=== PATIENT | male | born 1950 | race Caucasian/White ===

== ENCOUNTER 2017-06-12 17:46 | Emergency (ER) | payer MEDICARE, OTHER | END 2017-06-12 20:04 | disposition home or self-care (01) | LOC: D.ER 17:46 | DX: S01.01XA Laceration without foreign body of scalp, initial encounter (principal); W19.XXXA Unspecified fall, initial encounter; Y93.89 Activity, other specified; Y92.89 Other specified places as the place of occurrence of the external cause; E11.9 Type 2 diabetes mellitus without complications; I10 Essential (primary) hypertension ==

== ENCOUNTER 2017-10-12 01:36 | Inpatient (IN) | payer MEDICARE, OTHER ==
[~2017-10-12] VITALS: Ht 180.3 cm; Wt 122.0 kg
[2017-10-12] VITALS (16 sets, daily range): BP systolic 118–140; BP diastolic 64–102; BMI 40.3
--- NOTE | ~2017-10-12 | PN ---
PATIENT:NORMAN PHELPS JR MEDICAL RECORD: [id number] LOCATION:D.[facility] D.230 ADMISSION DATE: 10/12/17 PROGRESS NOTE DATE OF SERVICE: 10/28/2017 SUBJECTIVE: A 66-year-old male who was admitted through the Emergency Room for confusion, respiratory distress, and acute respiratory failure with hypoxia. The patient was felt to have alcohol withdrawal syndrome. He was also noted to have acute renal injury and nephrology was consulted. The patient was treated for alcohol withdrawal syndrome and his mental status has been improving. He does have occasional confusion. There is no fever and no chills. PHYSICAL EXAMINATION: VITAL SIGNS: Temperature 97.9, heart rate of 153, respiratory rate of 16, blood pressure 105/84, saturation 97%. SHEENT: Unremarkable. NECK: Supple. CARDIAC: Shows no jugular venous distention, murmur, or gallop. ABDOMEN: Benign without any tenderness. EXTREMITIES: Show no clubbing, cyanosis, or edema. Lab exam shows white count of 9.5, hemoglobin 14.3, platelet count is 263,000. Chemistry is remarkable for sodium of 140, potassium 3.7, and creatinine 1.3. Chest x-ray shows interval improvement of the lungs with stable left pleural effusion. ASSESSMENT: 1. Pneumonia, probably aspiration. The patient is on antibiotics. 2. Alcohol withdrawal syndrome. 3. History of alcohol abuse. DISCUSSION: NEUROPSYCHIATRY: There are no focal signs. The patient's mental status is improving. CARDIOVASCULAR: The patient has had atrial flutter, probably secondary to alcohol withdrawal syndrome. CARDIOPULMONARY: The patient seems to have pneumonia. PLAN: 1. Continue withdrawal treatment. 2. Continue antibiotics. 3. Increase activity. TRANSINT:[id number] Voice Confirmation ID: [id number] DOCUMENT ID: [id number] PROGRESS NOTE [id number] NORMAN PHELPS JR GARCIA HAIDER at 0806 CC: [id number] DICTATION DATE: 10/28/17 1520 BASE FILLER OPERATOR: 10/28/171955 ADM IN [place] [id number] [place] [address]
--- NOTE | ~2017-10-12 | CN ---
PATIENT NAME:NORMAN PHELPS JR MEDICAL RECORD: [id number] : 46 LOCATION:[facility]2312 ADMIT DATE: 10/12/17 ACCOUNT: [id number] CONSULTING PHYSICIAN: IMER YOUSSEF MD REFERRING PHYSICIAN: FAISAL BHAGAT DO DATE OF CONSULTATION: 10/13/2017 CONSULT REQUESTING PHYSICIAN: Faisal Bhagat DO REASON FOR CONSULTATION: Acute hypoxic respiratory failure, shortness of breath. HISTORY OF PRESENT ILLNESS: Mr. Phelps is a 66-year-old very pleasant gentleman who has history of smoking. He came into the ER with shortness of breath, found out the patient is in atrial fibrillation and flutter. This morning, the patient became more short of breath. There is no fever or chill. He is coughing with very little sputum production. Denies any fever and chills. He is also complaining of abdominal pain. REVIEW OF THE SYSTEMS: As in history of present illness. PAST MEDICAL HISTORY: 1. Hypertension. 2. Gastroesophageal reflux disease. 3. Diabetes mellitus. ALLERGIES: There are no known drug allergies. MEDICATIONS: Glanse was reviewed. PERSONAL AND SOCIAL HISTORY: The patient is and lives with his . He is an ex-smoker for 30 years. He is nondrinker. FAMILY HISTORY: Noncontributory. PHYSICAL EXAMINATION: GENERAL: Now, the patient is lying in bed. He is in no acute distress. VITAL SIGNS: The blood pressure is 105/64, pulse is 60, respiration is 28, temperature is 98, and SpO2 is 98% on 3 liters nasal cannula. HEENT: Conjunctivae are pink. Sclerae are not icteric. NECK: Neck is supple. No JVD. CHEST: There are bilateral crackles. No wheezing. HEART: Rhythm regular. Normal sound. No murmur. ABDOMEN: Abdomen is soft. Bowel sounds present. No hepatosplenomegaly. RECTAL: Deferred. EXTREMITIES: No cyanosis. No clubbing. There is 1+ pedal edema. SKIN: The skin is warm. Normal turgor. CENTRAL NERVOUS SYSTEM: The patient is awake and alert. There is no obvious cranial nerve abnormality. The gait was not tested. IMAGING: CTA of the chest; there is no pulmonary embolism. There is increased interstitial marking. There are bibasal infiltrates. There is a small pleural effusion. LABORATORY DATA: CBC; WBC is 14.3, hemoglobin 15.1, hematocrit 42.9, and CONSULT REPORT [id number] NORMAN PHELPS JR platelet count is 170. Chemistry; sodium 135, potassium is 4.2, BUN is 18, creatinine is 1, glucose 175. ABG; the pH is 7.39, pCO2 is 27.7, pO2 is 51, bicarb is 16.9. IMPRESSION: 1. Acute hypoxic respiratory failure. 2. Pulmonary edema. 3. Bibasilar atelectasis. 4. Possible pneumonia with leukocytosis. 5. Acute exacerbation of COPD. 6. Atrial flutter. 7. Positive D-dimer with no PTE on CTA of the chest. 8. Cholecystitis. 9. Gastroesophageal reflux disease. 10. Morbid obesity. RECOMMENDATION: 1. Continue supplemental oxygen. 2. Lasix p.r.n. 3. Continue meropenem. 4. Start on ipratropium and budesonide nebulizer. 5. Xopenex 0.63 mg q. 6 hourly. 6. Mucinex. 7. Followup labs and chest radiograph. 8. Followup on the cardiac echo. Dr. Bhagat, thank you for involving me in the care of Mr. Phelps. TRANSINT:[id number] Voice Confirmation ID: [id number] DOCUMENT ID: [id number] IMER YOUSSEF MD at 1110 CC: FAISAL BHAGAT DO [id number] DICTATION DATE: 10/13/171838 SOLAR PANEL TECHNICIAN: 10/13/171937 ADM IN [facility] [address] [place] [address]
--- NOTE | ~2017-10-12 | MORECARE ---
CASE MANAGEMENT DISCHARGE SUMMARY PATIENT: NORMAN PHELPS JR UNIT: [id number] ADM DATE: 10/12/17 AGE: 66 : 48 SEX: M ROOM/BED: D.2308 AUTHOR: JAKUB, ARCHIVES DIRECTOR PHYSICIAN: REFERRING PHYSICIAN: SUNITA BHAGAT DO DATE OF SERVICE: 10/12/17 Discharge Plan Patient Name: NORMAN PHELPS Facility: [facility]:[place] : 1950 Planned Disposition: Home Anticipated Discharge Date: Discharge Date: Expected LOS: Initial Reviewer: [email or web address] Initial Review Date: 10/21/2017 Generated: 10/21/17 3:39 pm Patient Name: NORMAN PHELPS Page [phone] All edits/amendments must be made on the electronic document DICTATION DATE: 10/21/171438 HYDROELECTRIC PLANT ELECTRICAL ENGINEER: 10/21/17 1439 RPT#: [id number] DC DATE: STATUS: ADM IN [facility] [address] [place] [address] END OF REPORT
--- NOTE | ~2017-10-12 | PN ---
PATIENT:NORMAN PHELPS JR MEDICAL RECORD: [id number] LOCATION:[facility].230 ADMISSION DATE: 10/12/17 PROGRESS NOTE DATE OF SERVICE: 10/25/2017 SUBJECTIVE: This is a 66-year-old man who was admitted for congestive heart failure and atrial fibrillation, also noted to have gallbladder stones without any inflammation. He was noted to have alcohol withdrawal symptoms and was started on banana bag as well as Ativan. The patient's atrial fib was treated with digoxin as well as beta blockers and heart rate has improved. The patient is awake. Denies any pain, fever or chills. PHYSICAL EXAMINATION: GENERAL: Reveals a mildly obese male who is in no acute distress. VITAL SIGNS: Temperature 98.2, heart rate 74, respiratory rate of 20, blood pressure 125/70, saturation 95%. SHEENT: Unremarkable. The patient is normocephalic. Pupils are equal and reactive. NECK: Supple. There is no adenopathy. Trachea is midline. CHEST: Clear. There is no chest wall tenderness. There is no accessory muscle use. HEART: Shows no jugular venous distention. No murmur or gallops. ABDOMEN: Benign. EXTREMITIES: No clubbing, cyanosis or edema. LABORATORY DATA: White count of 10.8, hemoglobin 14.8 and platelet count is 229,000. Chemistry shows creatinine of 1.5, BUN 25, which is negative. Chest x-ray shows no acute disease. Left lower lobe atelectasis, resolved. ASSESSMENT: Alcohol abuse with alcohol withdrawal symptoms. It is improving. Psychiatry, the patient's mental status is mildly decreased from Ativan. He is otherwise nonfocal. Cardiovascular, there are no issues except for atrial fibrillation, which is controlled at this time. This may be related to alcoholism. Pulmonary, respiratory, the patient denies any smoking or COPD. PLAN: 1. Continue current treatment. 2. We will sign off. If needed, please call pulmonary consult. TRANSINT:[id number] Voice Confirmation ID: [id number] DOCUMENT ID: [id number] GARCIA HAIDER at 0806 CC: [id number] DICTATION DATE: 10/25/17 1647 PIT AND AUXILIARIES SUPERVISOR: 10/25/17 8054 [place] [address]
--- NOTE | ~2017-10-12 | PN ---
PATIENT:NORMAN PHELPS JR MEDICAL RECORD: [id number] LOCATION:.[facility] D.230 ADMISSION DATE: 10/12/17 PROGRESS NOTE DATE OF SERVICE: 10/27/2017 This is a 66-year-old man who was admitted to the Emergency Room with atrial flutter as well as a change in mental status. SUBJECTIVE: The patient was felt to have alcohol withdrawal syndrome and was treated with banana bag, thiamine as well as Ativan. The patient's mental status has been improving slowly. He is awake and alert. Family feels that he is almost back to his baseline. He denies any chest pain, shortness of breath or cough. PHYSICAL EXAMINATION: GENERAL: Reveals an elderly man who is in no acute distress. VITAL SIGNS: Temperature 100.2, heart rate of 75, respiratory rate of 21, blood pressure 108/68, saturation is 96%. SHEENT: Unremarkable. NECK: Supple. There is no tenderness. There is no adenopathy. CHEST: Showed no jugular venous distention. There is good air flow bilaterally. There is no crackles or wheezes. HEART: Shows no jugular venous distention. No murmur or gallops. ABDOMEN: Benign. EXTREMITIES: No clubbing, cyanosis or edema. LABORATORY DATA: White count of 12.2, hemoglobin 15.1, platelet count is 261,000. Chemistry is remarkable for creatinine of 1.5, BUN is 20. Chest x-ray showed a continued improvement in the basilar airspace disease with persistent degree of perihilar vascular congestion and mild interstitial edema. ASSESSMENT: 1. Aspiration pneumonia, improving. We will continue antibiotics. 2. Alcohol withdrawal syndrome. The patient's mental status is improving. DISCUSSION: 1. Neuropsychiatric: The patient's mental status is improving, much baseline. There are no focal signs with respect to stroke. 2. Cardiovascular: The patient is in atrial fib with rate controlled. We will probably have to defer anticoagulation until the patient is stable, to stop drinking as this would be risky as he drinks and falls. 3. Pulmonary and respiratory: We will continue bronchodilators and antibiotics for pneumonia. 4. Gastrointestinal and dietary: The patient has NG-tube. This may need to be removed when the patient is more awake and is able to tolerate oral diet. PLAN: 1. Continue bronchodilators. 2. Continue antibiotics. 3. Increase physical activity. TRANSINT:[id number] Voice Confirmation ID: [id number] DOCUMENT ID: [id number] PROGRESS NOTE [id number] NORMAN PHELPS JR, AUGUSTINE K at 0806 CC: [id number] DICTATION DATE: 10/27/17 2145 GRAZING EXAMINER: 10/28/17 0910 ADM IN [place] [id number] [place] [id number]
--- NOTE | ~2017-10-12 | EC ---
PATIENT:NORMAN PHELPS JR DATE OF SERVICE: 10/12/17 SEX: M MEDICAL RECORD: [id number] DATE OF : 46 LOCATION:[facility] D230 AGE OF PATIENT: 66 ADMISSION DATE: 10/12/17 REFERRING PHYSICIAN: INTERPRETING PHYSICIAN: STEFFEN CONDE MD ECHOCARDIOGRAM REPORT ECHO CHARGES 5 ECHO LIMITED Date: 10/20 CLINICAL DIAGNOSIS: A-FIB ECHOCARDIOGRAPHIC MEASUREMENTS (adult normal given) AC root (d.<3.7cm) 0 cm LV Septum d (<1.2 cm> 0 cm Valve Excursion 0 cm LV Septum (systole) 0 cm Left Atria (s.<4.0cm> 0 cm LVPW d(<1.2cm) 0 cm RV (d.<2.3cm) 0 cm LVPW (sytole) 0 cm LV diastole(<5.6CM) 0 cm MV E-F(>70mm/sec) 0 cm LV systole 0 cm LVOT Diameter 0 cm MV exc.(>10mm) 0 cm Est.ejection fraction (50-75%) 0 % DOPPLER: LVIT 0 cm/sec A 0 cm/sec E 0 cm/sec LA 0 cm/sec RVSP 0 mmHg LVOT 0 cm/sec AOP1/2T 0 m/s Asc. Ao 0 cm/sec RVOT 0 cm/sec RA 0 cm/sec PA 0 cm/sec AV Gradient Peak 0 mmHg AV Mean 0 mmHg AV Area 0 cm MV Gradient Peak 0 mmHg MV Mean 0 mmHg MV Area 0 cm COMMENTS: LIMITED STUDY (2-D ONLY) COMPLETE ECHO DONE ON 10/13/17 Tankman: Melissa CARRERAOE Resolution Analyst: 4 Dr. Conde TAPE# PACS Pericardial Effusion N DATE OF SERVICE: This is a limited echocardiogram for function. Heart rate was markedly elevated. The patient appeared to be in atrial fibrillation, atrial flutter. The anterior septal wall is dyskinetic and the posterior inferior wall is hypokinetic. The overall ejection fraction is 25%. In comparison to the previous echo, it is still very poor. Both of them were difficult to visualize, but the function appears to be still poor with regional wall motion abnormalities. ECHOCARDIOGRAM REPORT [id number] NORMAN PHELPS TRANSINT:[id number] Voice Confirmation ID: [id number] DOCUMENT ID: [id number] STEFFEN CONDE MD at 1144 CC: [id number] DICTATION DATE: 10/21/17 1040 HAND CLOTH FOLDER: 10/21/17 1101 ADM IN [place] [address] [place] [id number]
--- NOTE | ~2017-10-12 | PN ---
PATIENT:NORMAN PHELPS JR MEDICAL RECORD: [id number] LOCATION:.[facility] D.230 ADMISSION DATE: 10/12/17 PROGRESS NOTE DATE OF SERVICE: 10/29/2017 HISTORY OF PRESENT ILLNESS: This is a 66-year-old man presented to the Emergency Room for confusion as well as pneumonia. The patient has had history of alcohol and was felt to have withdrawal syndrome. He was given lactulose and some antibiotics. He continues to have confusion intermittently. Today he is very confused. He has no fever or chills. There is no pain. PHYSICAL EXAMINATION: GENERAL: Reveals a well-developed, well-nourished man, who is in no acute distress. VITAL SIGNS: Temperature 97.9, heart rate of 113, respiratory rate of 25, blood pressure 110/85. SHEENT: Unremarkable. NECK: Supple. CHEST: Shows occasional crackles. CARDIOVASCULAR: Pulses irregularly irregular. ABDOMEN: Benign, nontender. EXTREMITIES: Shows no clubbing, cyanosis or edema. LABORATORY DATA: Showed CBC: White count of 9, hemoglobin 15.1, platelet count 282. Arterial blood gas: pH 7.55, pCO2 of 34, and pO2 of 63. Creatinine is 1.4, BUN is 19. IMPRESSION: 1. Atrial fibrillation with RVR. 2. Alcohol withdrawal syndrome. PLAN: 1. Beta mayank, metoprolol for rate control. 2. Continue antibiotics. 3. Bronchodilators. 4. SCD. TRANSINT:[id number] Voice Confirmation ID: [id number] DOCUMENT ID: [id number] GARCIA HAIDER at 0805 CC: [id number] DICTATION DATE: 10/29/17 1204 RESTAURANT HOST/HOSTESS: 10/29/17 1228 ADM IN [facility] [address] [place] [id number]
--- NOTE | ~2017-10-12 | PN ---
PATIENT:NORMAN PHELPS JR MEDICAL RECORD: [id number] LOCATION:D.[facility] D.230 ADMISSION DATE: 10/12/17 PROGRESS NOTE DATE OF SERVICE: 10/30/2017 SUBJECTIVE: This is a 66-year-old male who was admitted with shortness of breath, was found to have bilateral infiltrates and also was noted to have alcohol withdrawal syndrome. The patient has been a heavy drinker and has been treated for alcohol withdrawal syndrome with banana bag, Ativan and Librium. He was also treated for atrial fibrillation with RVR and patient is currently on amiodarone as well as Cardizem drip. The patient's mental status has been up and down. He was agitated this morning, was sedated. The patient was rather confused yesterday. The family is at the bedside who could not arouse him. There is no fever or chills and no respiratory distress, coughing. PHYSICAL EXAMINATION: GENERAL: Reveals a well-developed, well-nourished male who is in no acute distress. VITAL SIGNS: Temperature 99, heart rate 108, respiratory rate 19, blood pressure 97/67. SHEENT: Unremarkable. There is no diaphoresis. The patient is normocephalic. Pupils are equal and reactive. Oral mucosa is normal. NECK: Supple. There is no adenopathy. Trachea is midline. LUNGS: Clear with good airflow bilaterally. There is no chest wall tenderness. HEART: Exam shows no jugular venous distention. No murmur or gallops. ABDOMEN: Benign and nontender. EXTREMITIES: No clubbing, cyanosis or edema. LABORATORY DATA: White count of 8.7, hemoglobin 14.2 and platelet count is 231,000. Arterial blood gas pH 7.51, pCO2 of 34, pO2 of 63, on 2.5 liters. Chemistry: Creatinine is 1.4, BUN is 18. Chest x-ray shows no acute disease. ASSESSMENT: 1. Alcohol withdrawal syndrome. 2. Alcohol abuse. 3. Pneumonia, improved and resolved. The patient has a low-grade temperature. White count is improved to normal. 4. Mental status change. 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 5. Atrial fibrillation. Rate is controlled today. 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 DISCUSSION: 1. Neuropsychiatry: The patient has no focal signs. The patient has had withdrawal syndrome and delirium. This could be ICU delirium or prolonged hospitalization delirium. We will monitor. CT scan of the head has been normal. The patient may need an MRI study. 2. Cardiovascular: The patient has atrial fibrillation, currently controlled rate. He is anticoagulated. If there is any problem call. The patient's infection is controlled. No significant pulmonary issues at this time. TRANSINT:[id number] Voice Confirmation ID: [id number] DOCUMENT ID: [id number] PROGRESS NOTE [id number] NORMAN PHELPS JR, AUGUSTINE K at 1307 CC: [id number] DICTATION DATE: 10/30/17 1109 HEALTH SAFETY ENGINEER: 10/30/17 1324 DIS IN 11/03/17 [place] [id number] [place] [address]
--- NOTE | ~2017-10-12 | PN ---
PATIENT:NORMAN PHELPS JR MEDICAL RECORD: [id number] LOCATION:D.[facility] D.230 ADMISSION DATE: 10/12/17 PROGRESS NOTE DATE OF SERVICE: 10/26/2017 SUBJECTIVE: This is a 66-year-old man who was admitted with shortness of breath. The patient was found to have atrial fibrillation. Also noted to have left lower lobe atelectasis and pneumonia. He was started on antibiotics and bronchodilators. Also given alcohol withdrawal treatment. The patient is more awake, alert, and following commands today. The patient denies shortness of breath or chest pains. PHYSICAL EXAMINATION: GENERAL: Reveals well-developed and well-nourished elderly male, who is in no acute distress. VITAL SIGNS: Heart rate of 93, respiratory rate of 15, blood pressure 122/93, saturation is 98% on room air. SHEENT: Unremarkable. Normocephalic. Pupils are equal and reactive. NECK: Supple. There is no adenopathy. CHEST: Clear with occasional crackles on coughing. No chest wall tenderness. CARDIAC: Shows no jugular venous distention, murmur, or gallop. ABDOMEN: Benign. EXTREMITIES: Show no clubbing, cyanosis, or edema. Lab exam showed blood culture was negative. CT scan of the head showed no intracranial abnormalities. Resolution of lower lobe atelectasis on chest x-ray. ASSESSMENT: 1. Wdpmg-kn-lyjigkn atrial fibrillation with RVR. 2. Pneumonia, probably from aspiration. 3. Alcohol withdrawal syndrome, treated for DTs. DISCUSSION: NEUROPSYCHIATRY: The patient's mental status is improving. There are no focal signs. CARDIOVASCULAR: The patient's heart rate is under control. We will defer anticoagulation until the patient is able to stop drinking as this will be a risk for fall and head injury with bleeding. PULMONARY/RESPIRATORY: The patient will continue antibiotics and bronchodilators. GASTROINTESTINAL/DIETARY: The patient still has nasogastric tube. May need to remove this and may be start on feeding. TRANSINT:[id number] Voice Confirmation ID: [id number] DOCUMENT ID: [id number] PROGRESS NOTE [id number] NORMAN PHELPS JR GARCIA HAIDER at 0806 CC: [id number] DICTATION DATE: 10/26/17 1528 CYLINDER GRINDER: 08/07/18 1918 ADM IN [facility] [address] [place] [address]
--- NOTE | ~2017-10-12 | CN ---
PATIENT NAME:NORMAN PHELPS JR MEDICAL RECORD: [id number] : 46 LOCATION:[facility].2308 ADMIT DATE: 10/12/17 ACCOUNT: [id number] CONSULTING PHYSICIAN: KIMANI HADDAD MD REFERRING PHYSICIAN: SUNITA BHAGAT DO DATE OF CONSULTATION: 10/29/2017 FOLLOWUP CONSULTATION IDENTIFYING DATA: The patient is 66 years old and known to me from consultation about 2 weeks ago. HISTORY OF PRESENT ILLNESS: The patient is admitted to the hospital secondary to atrial fibrillation. He is morbidly obese. He has hypertension and diabetes and is a heavy drinker. I am reconsulted now because he is experiencing a fluctuation in his level of consciousness with delusional and disorganized thought processes. MENTAL STATUS EXAMINATION: The patient is awake and oriented to person only. His mood is anxious. His affect is constricted. Thought processes are disorganized. Memory, concentration, and abstraction abilities are not formally tested because of inability to cooperate, but by inference they are clearly severely impaired. He appears to be responding to stimuli not present. ASSESSMENT: Alcohol withdrawal delirium. PLAN: The patient is being treated supportively with p.r.n. Librium. I agree with the use of the Librium. I am going to add a low dose of Haldol to his medication regimen. As he medically stabilizes and improves, I would anticipate a resolution in his underlying disorganization. The Haldol should hopefully help with his disorganized thought processes. He will be in need of residential or outpatient alcohol rehabilitative services once stabilized. Obviously that appears to be sometime down the road, but I do not think it is unreasonable to be considering it at this point. TRANSINT:[id number] Voice Confirmation ID: [id number] DOCUMENT ID: [id number] KIMANI HADDAD MD at 0743 CC: [id number] DICTATION DATE: 10/29/17 1344 MEDICAL ASSISTANT FLOAT: 10/29/17 1354 ADM IN [place] [address] [place] [id number]
--- NOTE | ~2017-10-12 | CN ---
PATIENT NAME:NORMAN PHELPS JR MEDICAL RECORD: [id number] : 46 LOCATION:[id number] ADMIT DATE: 10/12/17 ACCOUNT: [id number] CONSULTING PHYSICIAN: KIMANI HADDAD MD REFERRING PHYSICIAN: SUNITA BHAGAT DO DATE OF CONSULTATION: 10/18/2017 IDENTIFYING DATA: The patient is 66 years old and he is admitted to the hospital on a voluntary basis. CHIEF COMPLAINT: Cardiac arrhythmia. HISTORY OF PRESENT ILLNESS: The patient presented to the Emergency Room in atrial flutter and actually ended up having to be cardioverted. In addition to this, he has now developed acute cholecystitis. Although he was in normal sinus rhythm earlier, when I just went to see him, he was in atrial fibrillation again. I am consulted because apparently the patient drinks heavily. The exact amount is evasive, but from what I can piece together between what his says and what he says and what the nurse says, is that he drinks undoubtedly very heavily, at least a gallon of bourbon a week in addition to a large amount of beer. Apparently, he has been a functional alcoholic for many years, going to work, supporting his family, and not getting into any serious trouble; but since he retired, his says all that he does is sit in his recliner, watch television, and drink. It is unclear whether or not the patient wants help with his alcoholism. Certainly, it is a contributing factor to his medical condition along with his hypertension and diabetes. He is also morbidly obese. MENTAL STATUS EXAMINATION: The patient had just received Ativan and he is arousable but sedated. He is oriented. He answers some questions, but then falls back asleep. That is a reasonable description of his mental status, but it is not very helpful with what his baseline level of memory, concentration, and abstraction abilities are. He does deny that he wants to hurt himself or others and he gives an affirmative grunt to wanting help with his alcoholism. ASSESSMENT: Alcohol dependence. PLAN: At this time, the patient is medically ill. He is diabetic, hypertensive, and in intensive care with a cardiac arrhythmia. Once he is medically stabilized, I would recommend transferring him, if he wishes, to an inpatient residential program for medical detoxification. If he does not want to do that, I would recommend outpatient treatment either at [facility] or [facility], both of which do a fine job. While he is hospitalized here, I agree with use of thiamine and folate and would also recommend you continue the p.r.n. use of the Ativan. Medical detoxification is always something a little bit complicated and is being made more so by his comorbid medical conditions. I would strongly encourage him to seek inpatient residential care once stabilized. He almost certainly has a depressive illness and could probably benefit from a low dose of an SSRI; but given his underlying acute medical problems, I would wait to sort that out after he is more stable. TRANSINT:[id number] Voice Confirmation ID: [id number] DOCUMENT ID: [id number] CONSULT REPORT [id number] NORMAN PHLEPS JR, PETER MD at 1427 CC: [id number] DICTATION DATE: 10/18/17 1439 SUEDING MACHINE TENDER: 10/18/17 1457 ADM IN [facility] [address] [id number]
[2017-10-12] MEDS ORDERED: KLOR-CON 1010 MEQ (01:47)
[2017-10-12] MEDS ORDERED: ZYLOPRIM300 MG PO (01:47)
[2017-10-12] MEDS ORDERED: LIPITOR20 MG PO (01:47)
[2017-10-12] MEDS ORDERED: LASIX40 MG PO (01:48)
[2017-10-12] MEDS ORDERED: PROTONIX40 MG PO (01:48)
[2017-10-12] MEDS ORDERED: GLUCOPHAGE500 MG PO (01:48)
[2017-10-12] MEDS ORDERED: LISINOPRIL10 MG PO (01:49)
[2017-10-12] MEDS ORDERED: GLIMEPIRIDE4 MG PO (01:49)
[2017-10-12] MEDS ORDERED: CARDIZEM120 MG PO (01:49)
[2017-10-12 02:00] LABS: BASOPHILS 0.1 % (0-2); EOSINOPHILS 0.7 % (0-7); HEMATOCRIT 42.9 % (42.0-54.0); HEMOGLOBIN 15.1 g/dL (13.5-17.5); IMMATURE GRANULOCYTES 0.4 % (0-5); LYMPHOCYTES 11.6 % (15-50); MCH 34.7 pg (26.0-34.0); MCHC 35.2 g/dL (31.0-37.0); MCV 98.6 fL (80.0-100.0); MEAN PLATELET VOLUME 11.2 fL (7.4-10.4); MONOCYTES 11.1 % (2-11); NEUTROPHILS 76.1 % (40-80); PLATELET COUNT 170 10x3/uL (130-400); RBC 4.35 10x6/uL (4.20-6.10); RDW 13.2 % (11.5-14.5); WBC 14.3 10x3/uL (4.8-10.8)
[2017-10-12 02:15] LABS: ALBUMIN 3.8 g/dL (3.4-5.0); ALKALINE PHOSPHATASE 60 U/L (46-116); ALT (SGPT) 27 U/L (10-68); BILIRUBIN - TOTAL 0.87 mg/dL (0.2-1.3); CALC OSMOLALITY 268 mosm/kg (275-300); CALCIUM 8.8 mg/dL (8.5-10.1); CARBON DIOXIDE 21.5 mmol/L (21.0-32.0); CHLORIDE - SERUM 98 mmol/L (98-107); GLUCOSE 207 mg/dL (74-106); POTASSIUM - SERUM 3.6 mmol/L (3.5-5.1); PROTEIN - SERUM 7.6 g/dL (6.4-8.2); SODIUM 132 mmol/L (136-145); UREA NITROGEN 7 mg/dL (7-18); eGFR NON AFRICAN AMERICAN 79 mL/min (90-120)
[2017-10-12 02:17] LABS: APTT 27.1 SECONDS (22.8-39.4); INR 1.07 (0.85-1.17); PROTIME 13.5 SECONDS (11.6-15.0)
[2017-10-12 02:18] LABS: D-DIMER-QUANTITATIVE 0.37 ug/mLFEU (0.20-0.54)
[2017-10-12 02:25] LABS: CKMB 1.2 U/L (0.0-3.6); CREATINE KINASE 107 UL (21-232); LIPASE 192 U/L (73-393); MAGNESIUM - SERUM 1.3 mg/dL (1.8-2.4); PRO BNP 1720 pg/mL (0-125); TROPONIN-I < 0.017 ng/mL (0.000-0.060)
[2017-10-13] VITALS (45 sets, daily range): BP systolic 15–173; BP diastolic 49–102; BMI 38.7
[2017-10-13 05:38] LABS: BASOPHILS 0.1 % (0-2); EOSINOPHILS 0.2 % (0-7); HEMATOCRIT 41.6 % (42.0-54.0); HEMOGLOBIN 14.2 g/dL (13.5-17.5); IMMATURE GRANULOCYTES 0.4 % (0-5); LYMPHOCYTES 10.2 % (15-50); MCH 34.5 pg (26.0-34.0); MCHC 34.1 g/dL (31.0-37.0); MEAN PLATELET VOLUME 12.1 fL (7.4-10.4); MONOCYTES 11.2 % (2-11); NEUTROPHILS 77.9 % (40-80); PLATELET COUNT 136 10x3/uL (130-400); RBC 4.11 10x6/uL (4.20-6.10); RDW 13.5 % (11.5-14.5); WBC 11.3 10x3/uL (4.8-10.8)
[2017-10-13 05:52] LABS: MCV 101.2 fL (80.0-100.0)
[2017-10-13 05:57] LABS: ALBUMIN 3.2 g/dL (3.4-5.0); ALKALINE PHOSPHATASE 38 U/L (46-116); BILIRUBIN - TOTAL 1.64 mg/dL (0.2-1.3); CALCIUM 8.6 mg/dL (8.5-10.1); CHLORIDE - SERUM 98 mmol/L (98-107); GLUCOSE 175 mg/dL (74-106); MAGNESIUM - SERUM 1.6 mg/dL (1.8-2.4); PHOSPHOROUS 4.1 mg/dL (2.5-4.9); SODIUM 135 mmol/L (136-145); eGFR NON AFRICAN AMERICAN 79 mL/min (90-120)
[2017-10-13 05:59] LABS: ALT (SGPT) 19 U/L (10-68); CALC OSMOLALITY 275 mosm/kg (275-300); CARBON DIOXIDE 28.1 mmol/L (21.0-32.0); POTASSIUM - SERUM 4.2 mmol/L (3.5-5.1); UREA NITROGEN 18 mg/dL (7-18)
[2017-10-13 16:55] LABS: CREATINE KINASE 117 UL (21-232)
[2017-10-13 17:04] LABS: CKMB 5.8 U/L (0.0-3.6)
[2017-10-14] VITALS (63 sets, daily range): BP systolic 72–133; BP diastolic 46–101; Ht 180.3 cm; Wt 122.0 kg
[2017-10-14 03:24] LABS: BASOPHILS 0.1 % (0-2); EOSINOPHILS 0.1 % (0-7); HEMATOCRIT 41.5 % (42.0-54.0); HEMOGLOBIN 14.2 g/dL (13.5-17.5); IMMATURE GRANULOCYTES 0.8 % (0-5); LYMPHOCYTES 11.5 % (15-50); MCH 34.1 pg (26.0-34.0); MCHC 34.2 g/dL (31.0-37.0); MCV 99.5 fL (80.0-100.0); MEAN PLATELET VOLUME 11.5 fL (7.4-10.4); MONOCYTES 11.3 % (2-11); NEUTROPHILS 76.2 % (40-80); PLATELET COUNT 141 10x3/uL (130-400); RBC 4.17 10x6/uL (4.20-6.10); WBC 13.2 10x3/uL (4.8-10.8)
[2017-10-14 03:39] LABS: BILIRUBIN - TOTAL 1.53 mg/dL (0.2-1.3); CALCIUM 8.1 mg/dL (8.5-10.1); MAGNESIUM - SERUM 1.8 mg/dL (1.8-2.4); PHOSPHOROUS 4.6 mg/dL (2.5-4.9); PROTEIN - SERUM 7.1 g/dL (6.4-8.2)
[2017-10-14 03:40] LABS: CREATININE - SERUM 1.7 mg/dL (0.6-1.3)
[2017-10-15] VITALS (15 sets, daily range): BP systolic 115–140; BP diastolic 70–115
[2017-10-15 03:12] LABS: BASOPHILS 0.1 % (0-2); EOSINOPHILS 0.9 % (0-7); HEMATOCRIT 40.7 % (42.0-54.0); HEMOGLOBIN 14.1 g/dL (13.5-17.5); IMMATURE GRANULOCYTES 0.5 % (0-5); LYMPHOCYTES 14.4 % (15-50); MCH 33.9 pg (26.0-34.0); MCHC 34.6 g/dL (31.0-37.0); MCV 97.8 fL (80.0-100.0); MEAN PLATELET VOLUME 11.6 fL (7.4-10.4); MONOCYTES 14.7 % (2-11); NEUTROPHILS 69.4 % (40-80); PLATELET COUNT 188 10x3/uL (130-400); RBC 4.16 10x6/uL (4.20-6.10); RDW 12.8 % (11.5-14.5); WBC 9.3 10x3/uL (4.8-10.8)
[2017-10-15 03:26] LABS: ALBUMIN 2.7 g/dL (3.4-5.0); ANION GAP 12.7 mmol/L (8-16); BILIRUBIN - TOTAL 0.78 mg/dL (0.2-1.3); CALCIUM 8.3 mg/dL (8.5-10.1); PHOSPHOROUS 4.1 mg/dL (2.5-4.9); POTASSIUM - SERUM 3.7 mmol/L (3.5-5.1); PROTEIN - SERUM 6.8 g/dL (6.4-8.2)
[2017-10-15 03:27] LABS: CREATININE - SERUM 1.1 mg/dL (0.6-1.3)
[2017-10-16 01:26] VITALS: BP 144/89
[2017-10-16 05:31] LABS: BASOPHILS 0.1 % (0-2); EOSINOPHILS 0.1 % (0-7); HEMATOCRIT 45.7 % (42.0-54.0); HEMOGLOBIN 16.3 g/dL (13.5-17.5); IMMATURE GRANULOCYTES 0.6 % (0-5); LYMPHOCYTES 14.9 % (15-50); MCH 34.3 pg (26.0-34.0); MCHC 35.7 g/dL (31.0-37.0); MCV 96.2 fL (80.0-100.0); MEAN PLATELET VOLUME 11.2 fL (7.4-10.4); MONOCYTES 9.9 % (2-11); NEUTROPHILS 74.4 % (40-80); RBC 4.75 10x6/uL (4.20-6.10); RDW 12.9 % (11.5-14.5)
[2017-10-16 05:34] LABS: PLATELET COUNT 269 10x3/uL (130-400); WBC 15.7 10x3/uL (4.8-10.8)
[2017-10-16 05:58] LABS: ANION GAP 14.9 mmol/L (8-16); BILIRUBIN - TOTAL 1.25 mg/dL (0.2-1.3); CALCIUM 9.5 mg/dL (8.5-10.1); CARBON DIOXIDE 27.8 mmol/L (21.0-32.0); MAGNESIUM - SERUM 1.6 mg/dL (1.8-2.4); POTASSIUM - SERUM 3.7 mmol/L (3.5-5.1); PROTEIN - SERUM 7.7 g/dL (6.4-8.2)
[2017-10-16 05:59] LABS: CREATININE - SERUM 1.7 mg/dL (0.6-1.3)
[2017-10-16 06:00] LABS: ALBUMIN 3.1 g/dL (3.4-5.0)
[2017-10-16 08:00] VITALS: BP 149/79
[2017-10-17] VITALS (12 sets, daily range): BP systolic 111–162; BP diastolic 74–101
[2017-10-17 05:14] LABS: INR 1.21 (0.85-1.17); PROTIME 14.9 SECONDS (11.6-15.0)
[2017-10-17 05:31] LABS: ALBUMIN 2.7 g/dL (3.4-5.0); ANION GAP 14.2 mmol/L (8-16); BILIRUBIN - TOTAL 1.82 mg/dL (0.2-1.3); CALCIUM 9.4 mg/dL (8.5-10.1); CARBON DIOXIDE 30.5 mmol/L (21.0-32.0); CREATININE - SERUM 2.1 mg/dL (0.6-1.3); POTASSIUM - SERUM 3.7 mmol/L (3.5-5.1); PROTEIN - SERUM 7.2 g/dL (6.4-8.2)
[2017-10-17 05:32] LABS: MAGNESIUM - SERUM 2.1 mg/dL (1.8-2.4)
[2017-10-17 05:36] LABS: HEMATOCRIT 45.8 % (42.0-54.0); MCH 34.4 pg (26.0-34.0); MCHC 34.9 g/dL (31.0-37.0); MCV 98.5 fL (80.0-100.0); MEAN PLATELET VOLUME 11.5 fL (7.4-10.4); PLATELET COUNT 223 10x3/uL (130-400); RBC 4.65 10x6/uL (4.20-6.10); RDW 13.1 % (11.5-14.5); WBC 23.2 10x3/uL (4.8-10.8)
[2017-10-17 06:39] LABS: LYMPHOCYTES 8 % (15-50); MONOCYTES 7 % (2-11); NEUTROPHILS 78 % (40-80); PLATELET ESTIMATE NORMAL; PLATELET MORPHOLOGY GIANT PLTS PRESENT
[2017-10-17 11:21] LABS: CREATINE KINASE 366 UL (21-232); T4 THYROXINE 10.4 ug/dL (4.7-13.3); THYROID STIMULATING HORMONE 1.14 uIU/mL (0.36-3.74); TROPONIN-I 0.036 ng/mL (0.000-0.060)
[2017-10-18] VITALS (24 sets, daily range): BP systolic 102–163; BP diastolic 77–117
[2017-10-18 03:55] LABS: BASOPHILS 0.1 % (0-2); EOSINOPHILS 0 % (0-7); HEMATOCRIT 45.5 % (42.0-54.0); HEMOGLOBIN 15.6 g/dL (13.5-17.5); IMMATURE GRANULOCYTES 0.4 % (0-5); LYMPHOCYTES 4.7 % (15-50); MCH 33.9 pg (26.0-34.0); MCHC 34.3 g/dL (31.0-37.0); MCV 98.9 fL (80.0-100.0); MEAN PLATELET VOLUME 11.3 fL (7.4-10.4); MONOCYTES 11.2 % (2-11); NEUTROPHILS 83.6 % (40-80); PLATELET COUNT 180 10x3/uL (130-400); RDW 12.8 % (11.5-14.5); WBC 18.7 10x3/uL (4.8-10.8)
[2017-10-18 04:04] LABS: INR 1.28 (0.85-1.17); PROTIME 15.3 SECONDS (11.6-15.0)
[2017-10-18 04:33] LABS: ALBUMIN 2.4 g/dL (3.4-5.0); ALKALINE PHOSPHATASE 46 U/L (46-116); BILIRUBIN - TOTAL 1.44 mg/dL (0.2-1.3); CARBON DIOXIDE 32.9 mmol/L (21.0-32.0); CHLORIDE - SERUM 99 mmol/L (98-107); CREATINE KINASE 193 UL (21-232); MAGNESIUM - SERUM 2.2 mg/dL (1.8-2.4); POTASSIUM - SERUM 3.5 mmol/L (3.5-5.1); SODIUM 140 mmol/L (136-145); UREA NITROGEN 42 mg/dL (7-18); eGFR NON AFRICAN AMERICAN 35 mL/min (90-120)
[2017-10-18 04:36] LABS: ALT (SGPT) 99 U/L (10-68); CALC OSMOLALITY 293 mosm/kg (275-300); GLUCOSE 165 mg/dL (74-106)
[2017-10-19] VITALS (23 sets, daily range): BP systolic 97–136; BP diastolic 74–98
[2017-10-19 03:58] LABS: BASOPHILS 0.1 % (0-2); EOSINOPHILS 0.4 % (0-7); HEMATOCRIT 42.2 % (42.0-54.0); HEMOGLOBIN 14.5 g/dL (13.5-17.5); IMMATURE GRANULOCYTES 0.5 % (0-5); LYMPHOCYTES 5.7 % (15-50); MCH 34.1 pg (26.0-34.0); MCHC 34.4 g/dL (31.0-37.0); MCV 99.3 fL (80.0-100.0); MEAN PLATELET VOLUME 11.4 fL (7.4-10.4); MONOCYTES 9.9 % (2-11); NEUTROPHILS 83.4 % (40-80); PLATELET COUNT 191 10x3/uL (130-400); RBC 4.25 10x6/uL (4.20-6.10); RDW 12.9 % (11.5-14.5); WBC 14.4 10x3/uL (4.8-10.8)
[2017-10-19 04:17] LABS: ALBUMIN 1.9 g/dL (3.4-5.0); ANION GAP 8.7 mmol/L (8-16); BILIRUBIN - DIRECT 0.4 mg/dL (0.00-0.30); BILIRUBIN - INDIRECT 0.69 mg/dL (0.00-1.00); BILIRUBIN - TOTAL 1.09 mg/dL (0.2-1.3); CALCIUM 8.4 mg/dL (8.5-10.1); CARBON DIOXIDE 32.4 mmol/L (21.0-32.0); CREATININE - SERUM 1.7 mg/dL (0.6-1.3); MAGNESIUM - SERUM 2.1 mg/dL (1.8-2.4); POTASSIUM - SERUM 3.1 mmol/L (3.5-5.1); PROTEIN - SERUM 6.1 g/dL (6.4-8.2)
[2017-10-20] VITALS (24 sets, daily range): BP systolic 106–141; BP diastolic 69–113
[2017-10-20 04:28] LABS: BASOPHILS 0.2 % (0-2); EOSINOPHILS 1.6 % (0-7); HEMOGLOBIN 15.2 g/dL (13.5-17.5); IMMATURE GRANULOCYTES 0.7 % (0-5); LYMPHOCYTES 10.1 % (15-50); MCH 34.2 pg (26.0-34.0); MCHC 34.5 g/dL (31.0-37.0); MCV 99.1 fL (80.0-100.0); MEAN PLATELET VOLUME 11.5 fL (7.4-10.4); MONOCYTES 9.9 % (2-11); NEUTROPHILS 77.5 % (40-80); PLATELET COUNT 208 10x3/uL (130-400); RBC 4.44 10x6/uL (4.20-6.10); RDW 12.9 % (11.5-14.5); WBC 11.5 10x3/uL (4.8-10.8)
[2017-10-20 04:59] LABS: ALBUMIN 1.9 g/dL (3.4-5.0); BILIRUBIN - TOTAL 0.87 mg/dL (0.2-1.3); CALCIUM 8.7 mg/dL (8.5-10.1); CARBON DIOXIDE 32.5 mmol/L (21.0-32.0); CREATININE - SERUM 1.6 mg/dL (0.6-1.3); PHOSPHOROUS 3.5 mg/dL (2.5-4.9); POTASSIUM - SERUM 3.5 mmol/L (3.5-5.1); PROTEIN - SERUM 6.3 g/dL (6.4-8.2)
[2017-10-21] VITALS (23 sets, daily range): BP systolic 95–157; BP diastolic 54–111
[2017-10-21 03:44] LABS: BASOPHILS 0.2 % (0-2); EOSINOPHILS 1.3 % (0-7); HEMATOCRIT 48.3 % (42.0-54.0); HEMOGLOBIN 16.6 g/dL (13.5-17.5); IMMATURE GRANULOCYTES 0.6 % (0-5); MCH 33.8 pg (26.0-34.0); MCHC 34.4 g/dL (31.0-37.0); MCV 98.4 fL (80.0-100.0); MEAN PLATELET VOLUME 11.2 fL (7.4-10.4); MONOCYTES 11.2 % (2-11); NEUTROPHILS 79.7 % (40-80); PLATELET COUNT 244 10x3/uL (130-400); RBC 4.91 10x6/uL (4.20-6.10); RDW 13.1 % (11.5-14.5)
[2017-10-21 03:48] LABS: WBC 16.2 10x3/uL (4.8-10.8)
[2017-10-21 04:21] LABS: ALBUMIN 2.2 g/dL (3.4-5.0); ANION GAP 7.4 mmol/L (8-16); BILIRUBIN - TOTAL 0.86 mg/dL (0.2-1.3); CALCIUM 9.4 mg/dL (8.5-10.1); CARBON DIOXIDE 36.3 mmol/L (21.0-32.0); CREATININE - SERUM 1.6 mg/dL (0.6-1.3); DIGOXIN 1.95 ng/mL (0.90-2.00); MAGNESIUM - SERUM 2.2 mg/dL (1.8-2.4); PHOSPHOROUS 3.8 mg/dL (2.5-4.9); POTASSIUM - SERUM 3.7 mmol/L (3.5-5.1); PROTEIN - SERUM 6.9 g/dL (6.4-8.2)
[2017-10-22] VITALS (24 sets, daily range): BP systolic 90–142; BP diastolic 39–99
[2017-10-22 06:59] LABS: ALBUMIN 2.1 g/dL (3.4-5.0); ANION GAP 13.8 mmol/L (8-16); BILIRUBIN - TOTAL 1.05 mg/dL (0.2-1.3); CALCIUM 8.4 mg/dL (8.5-10.1); CARBON DIOXIDE 30.9 mmol/L (21.0-32.0); CREATININE - SERUM 1.5 mg/dL (0.6-1.3); MAGNESIUM - SERUM 2.1 mg/dL (1.8-2.4); PHOSPHOROUS 4.3 mg/dL (2.5-4.9); POTASSIUM - SERUM 3.7 mmol/L (3.5-5.1); PROTEIN - SERUM 5.5 g/dL (6.4-8.2)
[2017-10-22 07:02] LABS: BASOPHILS 0.6 % (0-2); EOSINOPHILS 2.5 % (0-7); HEMATOCRIT 49.1 % (42.0-54.0); HEMOGLOBIN 16.5 g/dL (13.5-17.5); IMMATURE GRANULOCYTES 1.1 % (0-5); LYMPHOCYTES 8.7 % (15-50); MCH 33.4 pg (26.0-34.0); MCHC 33.6 g/dL (31.0-37.0); MCV 99.4 fL (80.0-100.0); MEAN PLATELET VOLUME 11.5 fL (7.4-10.4); MONOCYTES 12.2 % (2-11); NEUTROPHILS 74.9 % (40-80); PLATELET COUNT 208 10x3/uL (130-400); RBC 4.94 10x6/uL (4.20-6.10); RDW 13.4 % (11.5-14.5); WBC 12.2 10x3/uL (4.8-10.8)
[2017-10-23] VITALS (22 sets, daily range): BP systolic 103–138; BP diastolic 50–96
[2017-10-23 04:47] LABS: BASOPHILS 0.4 % (0-2); EOSINOPHILS 3.8 % (0-7); HEMATOCRIT 43.8 % (42.0-54.0); HEMOGLOBIN 14.8 g/dL (13.5-17.5); LYMPHOCYTES 10.5 % (15-50); MCH 33.6 pg (26.0-34.0); MCHC 33.8 g/dL (31.0-37.0); MCV 99.3 fL (80.0-100.0); MEAN PLATELET VOLUME 11.2 fL (7.4-10.4); MONOCYTES 11.1 % (2-11); NEUTROPHILS 73.2 % (40-80); PLATELET COUNT 227 10x3/uL (130-400); RBC 4.41 10x6/uL (4.20-6.10); RDW 13.3 % (11.5-14.5); WBC 10.9 10x3/uL (4.8-10.8)
[2017-10-23 05:32] LABS: ANION GAP 11.9 mmol/L (8-16); BILIRUBIN - TOTAL 0.95 mg/dL (0.2-1.3); CALCIUM 8.9 mg/dL (8.5-10.1); CARBON DIOXIDE 29.8 mmol/L (21.0-32.0); CREATININE - SERUM 1.5 mg/dL (0.6-1.3); MAGNESIUM - SERUM 2.2 mg/dL (1.8-2.4); PHOSPHOROUS 4.3 mg/dL (2.5-4.9); POTASSIUM - SERUM 3.7 mmol/L (3.5-5.1); PROTEIN - SERUM 6.3 g/dL (6.4-8.2)
[2017-10-24] VITALS (24 sets, daily range): BP systolic 100–145; BP diastolic 57–118
[2017-10-24 03:15] LABS: BASOPHILS 0.5 % (0-2); EOSINOPHILS 2.7 % (0-7); HEMATOCRIT 43.9 % (42.0-54.0); HEMOGLOBIN 14.9 g/dL (13.5-17.5); LYMPHOCYTES 8.9 % (15-50); MCH 33.9 pg (26.0-34.0); MCHC 33.9 g/dL (31.0-37.0); MCV 99.8 fL (80.0-100.0); MEAN PLATELET VOLUME 11.1 fL (7.4-10.4); MONOCYTES 12.6 % (2-11); NEUTROPHILS 74.3 % (40-80); PLATELET COUNT 236 10x3/uL (130-400); RDW 13.3 % (11.5-14.5); WBC 12.2 10x3/uL (4.8-10.8)
[2017-10-24 03:49] LABS: ALBUMIN 2.1 g/dL (3.4-5.0); ANION GAP 9.9 mmol/L (8-16); BILIRUBIN - TOTAL 1.07 mg/dL (0.2-1.3); CALCIUM 8.8 mg/dL (8.5-10.1); CARBON DIOXIDE 31.8 mmol/L (21.0-32.0); CREATININE - SERUM 1.5 mg/dL (0.6-1.3); MAGNESIUM - SERUM 1.9 mg/dL (1.8-2.4); PHOSPHOROUS 3.7 mg/dL (2.5-4.9); POTASSIUM - SERUM 3.7 mmol/L (3.5-5.1); PROTEIN - SERUM 6.4 g/dL (6.4-8.2)
[2017-10-25] VITALS (24 sets, daily range): BP systolic 92–145; BP diastolic 42–76
[2017-10-25 04:34] LABS: BASOPHILS 0.3 % (0-2); EOSINOPHILS 2.3 % (0-7); HEMATOCRIT 43.2 % (42.0-54.0); HEMOGLOBIN 14.8 g/dL (13.5-17.5); IMMATURE GRANULOCYTES 0.8 % (0-5); LYMPHOCYTES 10.6 % (15-50); MCH 34.1 pg (26.0-34.0); MCHC 34.3 g/dL (31.0-37.0); MCV 99.5 fL (80.0-100.0); MEAN PLATELET VOLUME 10.9 fL (7.4-10.4); MONOCYTES 10.3 % (2-11); NEUTROPHILS 75.7 % (40-80); PLATELET COUNT 229 10x3/uL (130-400); RBC 4.34 10x6/uL (4.20-6.10); RDW 13.3 % (11.5-14.5); WBC 10.8 10x3/uL (4.8-10.8)
[2017-10-25 05:00] LABS: ALBUMIN 2.1 g/dL (3.4-5.0); ANION GAP 8.9 mmol/L (8-16); BILIRUBIN - TOTAL 0.99 mg/dL (0.2-1.3); CALCIUM 8.7 mg/dL (8.5-10.1); CARBON DIOXIDE 33.7 mmol/L (21.0-32.0); CREATININE - SERUM 1.5 mg/dL (0.6-1.3); PHOSPHOROUS 3.4 mg/dL (2.5-4.9); POTASSIUM - SERUM 3.6 mmol/L (3.5-5.1); PROTEIN - SERUM 6.6 g/dL (6.4-8.2)
[2017-10-26] VITALS (21 sets, daily range): BP systolic 98–136; BP diastolic 62–100
[2017-10-26 04:52] LABS: BASOPHILS 0.3 % (0-2); EOSINOPHILS 2.3 % (0-7); HEMATOCRIT 48.3 % (42.0-54.0); HEMOGLOBIN 16.4 g/dL (13.5-17.5); IMMATURE GRANULOCYTES 0.5 % (0-5); LYMPHOCYTES 9.8 % (15-50); MCH 33.7 pg (26.0-34.0); MCV 99.2 fL (80.0-100.0); MEAN PLATELET VOLUME 11.9 fL (7.4-10.4); MONOCYTES 8.1 % (2-11); PLATELET COUNT 251 10x3/uL (130-400); RBC 4.87 10x6/uL (4.20-6.10); RDW 13.3 % (11.5-14.5); WBC 11.9 10x3/uL (4.8-10.8)
[2017-10-26 05:44] LABS: ALBUMIN 2.3 g/dL (3.4-5.0); ANION GAP 6.8 mmol/L (8-16); BILIRUBIN - TOTAL 0.96 mg/dL (0.2-1.3); CALCIUM 9.4 mg/dL (8.5-10.1); CREATININE - SERUM 1.3 mg/dL (0.6-1.3); MAGNESIUM - SERUM 2.2 mg/dL (1.8-2.4); PHOSPHOROUS 3.2 mg/dL (2.5-4.9); POTASSIUM - SERUM 3.8 mmol/L (3.5-5.1); PROTEIN - SERUM 7.1 g/dL (6.4-8.2)
[2017-10-27] VITALS (25 sets, daily range): BP systolic 94–144; BP diastolic 58–94
[2017-10-27 05:17] LABS: BASOPHILS 0.2 % (0-2); EOSINOPHILS 2.7 % (0-7); HEMATOCRIT 44.2 % (42.0-54.0); HEMOGLOBIN 15.1 g/dL (13.5-17.5); IMMATURE GRANULOCYTES 0.5 % (0-5); MCH 33.6 pg (26.0-34.0); MCHC 34.2 g/dL (31.0-37.0); MCV 98.4 fL (80.0-100.0); MEAN PLATELET VOLUME 11.7 fL (7.4-10.4); MONOCYTES 7.5 % (2-11); NEUTROPHILS 79.1 % (40-80); PLATELET COUNT 261 10x3/uL (130-400); RBC 4.49 10x6/uL (4.20-6.10); RDW 13.3 % (11.5-14.5); WBC 12.2 10x3/uL (4.8-10.8)
[2017-10-27 05:56] LABS: ALBUMIN 2.2 g/dL (3.4-5.0); ANION GAP 12.4 mmol/L (8-16); BILIRUBIN - TOTAL 0.65 mg/dL (0.2-1.3); CALCIUM 9.1 mg/dL (8.5-10.1); CARBON DIOXIDE 31.1 mmol/L (21.0-32.0); CREATININE - SERUM 1.5 mg/dL (0.6-1.3); MAGNESIUM - SERUM 1.9 mg/dL (1.8-2.4); PHOSPHOROUS 3.9 mg/dL (2.5-4.9); POTASSIUM - SERUM 3.5 mmol/L (3.5-5.1); PROTEIN - SERUM 6.7 g/dL (6.4-8.2)
[2017-10-28] VITALS (25 sets, daily range): BP systolic 94–134; BP diastolic 24–104
[2017-10-28 04:13] LABS: BASOPHILS 0.3 % (0-2); EOSINOPHILS 2.7 % (0-7); HEMATOCRIT 42.3 % (42.0-54.0); HEMOGLOBIN 14.3 g/dL (13.5-17.5); IMMATURE GRANULOCYTES 0.5 % (0-5); LYMPHOCYTES 13.7 % (15-50); MCH 33.2 pg (26.0-34.0); MCHC 33.8 g/dL (31.0-37.0); MCV 98.1 fL (80.0-100.0); MEAN PLATELET VOLUME 11.9 fL (7.4-10.4); MONOCYTES 8.1 % (2-11); NEUTROPHILS 74.7 % (40-80); PLATELET COUNT 263 10x3/uL (130-400); RBC 4.31 10x6/uL (4.20-6.10); RDW 13.2 % (11.5-14.5); WBC 9.5 10x3/uL (4.8-10.8)
[2017-10-28 04:45] LABS: ANION GAP 6.4 mmol/L (8-16); BILIRUBIN - TOTAL 0.68 mg/dL (0.2-1.3); CALCIUM 8.8 mg/dL (8.5-10.1); CARBON DIOXIDE 34.9 mmol/L (21.0-32.0); CREATININE - SERUM 1.3 mg/dL (0.6-1.3); MAGNESIUM - SERUM 1.7 mg/dL (1.8-2.4); PHOSPHOROUS 4.2 mg/dL (2.5-4.9); POTASSIUM - SERUM 3.3 mmol/L (3.5-5.1); PROTEIN - SERUM 6.4 g/dL (6.4-8.2)
[2017-10-29] VITALS (24 sets, daily range): BP systolic 91–125; BP diastolic 55–103
[2017-10-29 04:28] LABS: BASOPHILS 0.2 % (0-2); EOSINOPHILS 3.7 % (0-7); HEMATOCRIT 44.1 % (42.0-54.0); HEMOGLOBIN 15.1 g/dL (13.5-17.5); IMMATURE GRANULOCYTES 0.6 % (0-5); LYMPHOCYTES 13.7 % (15-50); MCH 33.5 pg (26.0-34.0); MCHC 34.2 g/dL (31.0-37.0); MCV 97.8 fL (80.0-100.0); MEAN PLATELET VOLUME 12.4 fL (7.4-10.4); MONOCYTES 12.4 % (2-11); NEUTROPHILS 69.4 % (40-80); PLATELET COUNT 232 10x3/uL (130-400); RBC 4.51 10x6/uL (4.20-6.10); RDW 13.1 % (11.5-14.5)
[2017-10-29 04:47] LABS: ALBUMIN 2.1 g/dL (3.4-5.0); ANION GAP 11.5 mmol/L (8-16); BILIRUBIN - TOTAL 0.75 mg/dL (0.2-1.3); CALCIUM 9.5 mg/dL (8.5-10.1); CARBON DIOXIDE 28.4 mmol/L (21.0-32.0); CREATININE - SERUM 1.4 mg/dL (0.6-1.3); MAGNESIUM - SERUM 1.7 mg/dL (1.8-2.4); PHOSPHOROUS 4.4 mg/dL (2.5-4.9); POTASSIUM - SERUM 3.9 mmol/L (3.5-5.1); PROTEIN - SERUM 6.7 g/dL (6.4-8.2)
[2017-10-30] VITALS (24 sets, daily range): BP systolic 80–125; BP diastolic 32–84
[2017-10-30 03:50] LABS: BASOPHILS 0.2 % (0-2); EOSINOPHILS 3.2 % (0-7); HEMATOCRIT 41.8 % (42.0-54.0); HEMOGLOBIN 14.2 g/dL (13.5-17.5); IMMATURE GRANULOCYTES 0.6 % (0-5); LYMPHOCYTES 15.9 % (15-50); MCV 97.2 fL (80.0-100.0); MEAN PLATELET VOLUME 12.4 fL (7.4-10.4); MONOCYTES 7.8 % (2-11); NEUTROPHILS 72.3 % (40-80); PLATELET COUNT 231 10x3/uL (130-400); RDW 13.2 % (11.5-14.5); WBC 8.7 10x3/uL (4.8-10.8)
[2017-10-30 04:02] LABS: ALKALINE PHOSPHATASE 88 U/L (46-116); ALT (SGPT) 36 U/L (10-68); BILIRUBIN - TOTAL 0.65 mg/dL (0.2-1.3); CALC OSMOLALITY 278 mosm/kg (275-300); CALCIUM 9.1 mg/dL (8.5-10.1); CARBON DIOXIDE 30.4 mmol/L (21.0-32.0); CHLORIDE - SERUM 101 mmol/L (98-107); CKMB 0.8 U/L (0.0-3.6); CREATINE KINASE 23 UL (21-232); CREATININE - SERUM 1.4 mg/dL (0.6-1.3); GLUCOSE 154 mg/dL (74-106); PHOSPHOROUS 4.8 mg/dL (2.5-4.9); POTASSIUM - SERUM 3.6 mmol/L (3.5-5.1); PROTEIN - SERUM 6.7 g/dL (6.4-8.2); SODIUM 137 mmol/L (136-145); T4 THYROXIN - FREE 1.47 ng/dL (0.76-1.46); THYROID STIMULATING HORMONE 5.49 uIU/mL (0.36-3.74); UREA NITROGEN 18 mg/dL (7-18); eGFR NON AFRICAN AMERICAN 53 mL/min (90-120)
[2017-10-30 04:03] LABS: MAGNESIUM - SERUM 2.6 mg/dL (1.8-2.4); TROPONIN-I < 0.017 ng/mL (0.000-0.060)
[2017-10-31] VITALS (24 sets, daily range): BP systolic 88–138; BP diastolic 58–96
[2017-10-31 04:27] LABS: BASOPHILS 0.2 % (0-2); EOSINOPHILS 3.2 % (0-7); HEMOGLOBIN 13.3 g/dL (13.5-17.5); IMMATURE GRANULOCYTES 0.5 % (0-5); LYMPHOCYTES 12.5 % (15-50); MCH 33.1 pg (26.0-34.0); MCHC 34.1 g/dL (31.0-37.0); MEAN PLATELET VOLUME 11.9 fL (7.4-10.4); NEUTROPHILS 73.6 % (40-80); PLATELET COUNT 227 10x3/uL (130-400); RBC 4.02 10x6/uL (4.20-6.10); RDW 13.1 % (11.5-14.5); WBC 8.4 10x3/uL (4.8-10.8)
[2017-10-31 05:01] LABS: ALBUMIN 2.1 g/dL (3.4-5.0); ANION GAP 10.2 mmol/L (8-16); BILIRUBIN - TOTAL 0.47 mg/dL (0.2-1.3); CALCIUM 9.4 mg/dL (8.5-10.1); CARBON DIOXIDE 27.8 mmol/L (21.0-32.0); CREATININE - SERUM 1.4 mg/dL (0.6-1.3); PHOSPHOROUS 4.8 mg/dL (2.5-4.9); PROTEIN - SERUM 6.6 g/dL (6.4-8.2)
[2017-10-31 05:03] LABS: MAGNESIUM - SERUM 1.8 mg/dL (1.8-2.4)
[2017-11-01] VITALS (24 sets, daily range): BP systolic 96–145; BP diastolic 62–94
[2017-11-01 04:11] LABS: BASOPHILS 0.3 % (0-2); EOSINOPHILS 3.8 % (0-7); HEMATOCRIT 38.8 % (42.0-54.0); HEMOGLOBIN 13.2 g/dL (13.5-17.5); IMMATURE GRANULOCYTES 0.6 % (0-5); MCH 32.9 pg (26.0-34.0); MCV 96.8 fL (80.0-100.0); MEAN PLATELET VOLUME 12.4 fL (7.4-10.4); MONOCYTES 8.8 % (2-11); NEUTROPHILS 64.5 % (40-80); PLATELET COUNT 243 10x3/uL (130-400); RBC 4.01 10x6/uL (4.20-6.10); RDW 13.2 % (11.5-14.5); WBC 6.3 10x3/uL (4.8-10.8)
[2017-11-01 04:44] LABS: ALBUMIN 2.3 g/dL (3.4-5.0); ANION GAP 9.9 mmol/L (8-16); BILIRUBIN - TOTAL 0.55 mg/dL (0.2-1.3); CALCIUM 9.4 mg/dL (8.5-10.1); CARBON DIOXIDE 30.1 mmol/L (21.0-32.0); CREATININE - SERUM 1.5 mg/dL (0.6-1.3)
[2017-11-02] VITALS (24 sets, daily range): BP systolic 93–146; BP diastolic 55–105
[2017-11-02 05:09] LABS: BASOPHILS 0.7 % (0-2); EOSINOPHILS 3.3 % (0-7); HEMATOCRIT 37.9 % (42.0-54.0); HEMOGLOBIN 12.8 g/dL (13.5-17.5); IMMATURE GRANULOCYTES 0.3 % (0-5); LYMPHOCYTES 22.6 % (15-50); MCH 32.9 pg (26.0-34.0); MCHC 33.8 g/dL (31.0-37.0); MCV 97.4 fL (80.0-100.0); MEAN PLATELET VOLUME 12.4 fL (7.4-10.4); MONOCYTES 9.4 % (2-11); NEUTROPHILS 63.7 % (40-80); PLATELET COUNT 248 10x3/uL (130-400); RBC 3.89 10x6/uL (4.20-6.10); RDW 13.2 % (11.5-14.5); WBC 5.8 10x3/uL (4.8-10.8)
[2017-11-02 05:30] LABS: ALBUMIN 2.3 g/dL (3.4-5.0); ANION GAP 13.4 mmol/L (8-16); BILIRUBIN - TOTAL 0.59 mg/dL (0.2-1.3); CALCIUM 9.1 mg/dL (8.5-10.1); CARBON DIOXIDE 28.5 mmol/L (21.0-32.0); CREATININE - SERUM 1.5 mg/dL (0.6-1.3); MAGNESIUM - SERUM 1.4 mg/dL (1.8-2.4); PHOSPHOROUS 4.3 mg/dL (2.5-4.9); POTASSIUM - SERUM 3.9 mmol/L (3.5-5.1)
[2017-11-03] VITALS (16 sets, daily range): BP systolic 96–145; BP diastolic 56–109
[2017-11-03 06:45] LABS: BASOPHILS 0.3 % (0-2); EOSINOPHILS 3.9 % (0-7); HEMATOCRIT 39.6 % (42.0-54.0); HEMOGLOBIN 13.4 g/dL (13.5-17.5); IMMATURE GRANULOCYTES 0.3 % (0-5); LYMPHOCYTES 21.5 % (15-50); MCH 32.9 pg (26.0-34.0); MCHC 33.8 g/dL (31.0-37.0); MCV 97.3 fL (80.0-100.0); MEAN PLATELET VOLUME 11.4 fL (7.4-10.4); PLATELET COUNT 247 10x3/uL (130-400); RBC 4.07 10x6/uL (4.20-6.10); RDW 13.2 % (11.5-14.5); WBC 7.2 10x3/uL (4.8-10.8)
[2017-11-03 07:01] LABS: ALBUMIN 2.4 g/dL (3.4-5.0); ANION GAP 11.9 mmol/L (8-16); BILIRUBIN - TOTAL 0.56 mg/dL (0.2-1.3); CALCIUM 9.2 mg/dL (8.5-10.1); CARBON DIOXIDE 28.1 mmol/L (21.0-32.0); CREATININE - SERUM 1.5 mg/dL (0.6-1.3); PROTEIN - SERUM 7.1 g/dL (6.4-8.2)
== END 2017-11-03 17:13 | disposition home or self-care (01) | DRG 308 ==
LOC: D.ER 01:36 → D.M2 08:36 → D.EDHOLD 08:36 → D.ICU 08:36 → D.M2 10-15 14:52 → D.ICU 10-17 14:58
PROVIDERS: Family Medicine; Internal Medicine Pulmonary Disease
DX: I48.92 Unspecified atrial flutter (principal); J96.01 Acute respiratory failure with hypoxia; J18.9 Pneumonia, unspecified organism; I50.23 Acute on chronic systolic (congestive) heart failure; G93.49 Other encephalopathy; J81.1 Chronic pulmonary edema; J44.1 Chronic obstructive pulmonary disease with (acute) exacerbation; J98.11 Atelectasis; N17.9 Acute kidney failure, unspecified; F10.231 Alcohol dependence with withdrawal delirium; I13.0 Hypertensive heart and chronic kidney disease with heart failure and stage 1 through stage 4 chronic kidney disease, or unspecified chronic kidney disease; K81.9 Cholecystitis, unspecified; I48.91 Unspecified atrial fibrillation; E11.9 Type 2 diabetes mellitus without complications; D72.829 Elevated white blood cell count, unspecified; E87.6 Hypokalemia; K21.9 Gastro-esophageal reflux disease without esophagitis; E66.01 Morbid (severe) obesity due to excess calories; K76.0 Fatty (change of) liver, not elsewhere classified; Z68.38 Body mass index [BMI] 38.0-38.9, adult; E11.22 Type 2 diabetes mellitus with diabetic chronic kidney disease; N18.9 Chronic kidney disease, unspecified

== ENCOUNTER 2017-11-27 23:37 | Emergency (ER) | payer MEDICARE, OTHER ==
[~2017-11-27] VITALS: Ht 180.3 cm; Wt 105.9 kg
[~2017-11-27 23:37] MED LIST: CARDIZEM120 MG PO; GLIMEPIRIDE4 MG PO; GLUCOPHAGE500 MG PO; KLOR-CON 1010 MEQ; LASIX40 MG PO; LIPITOR20 MG PO; LISINOPRIL10 MG PO; PROTONIX40 MG PO; ZYLOPRIM300 MG PO
[2017-11-27 23:40] VITALS: Ht 180.3 cm; Wt 105.9 kg
[2017-11-28 00:04] LABS: HEMOGLOBIN 10.4 g/dL (13.5-17.5); LYMPHOCYTES 8.6 % (15-50); MCH 31.7 pg (26.0-34.0); MCHC 34.7 g/dL (31.0-37.0); MCV 91.5 fL (80.0-100.0); MEAN PLATELET VOLUME 10.8 fL (7.4-10.4); NEUTROPHILS 66.6 % (40-80); PLATELET COUNT 128 10x3/uL (130-400); RBC 3.28 10x6/uL (4.20-6.10); RDW 14.6 % (11.5-14.5); WBC 18.2 10x3/uL (4.8-10.8)
[2017-11-28 00:24] LABS: ALBUMIN 2.4 g/dL (3.4-5.0); ANION GAP 13.3 mmol/L (8-16); BILIRUBIN - TOTAL 0.45 mg/dL (0.2-1.3); CALCIUM 7.6 mg/dL (8.5-10.1); CARBON DIOXIDE 19.3 mmol/L (21.0-32.0); CREATININE - SERUM 2.8 mg/dL (0.6-1.3); POTASSIUM - SERUM 4.6 mmol/L (3.5-5.1); PROTEIN - SERUM 6.4 g/dL (6.4-8.2)
[2017-11-28 01:03] LABS: APPEARANCE CLEAR (CLEAR); BILIRUBIN NEGATIVE (NEGATIVE); COLOR YELLOW (YELLOW); GLUCOSE NEGATIVE (NEGATIVE); KETONE NEGATIVE (NEGATIVE); NITRITE NEGATIVE (NEGATIVE); PROTEIN NEGATIVE (NEGATIVE); SPECIFIC GRAVITY 1.015 (1.005-1.020); UROBILINOGEN NORMAL (NORMAL)
[2017-11-28 03:08] VITALS: BP 114/54
== END 2017-11-28 03:23 | disposition other institution (70) ==
LOC: D.ER 23:37
PROVIDERS: Emergency Medicine
DX: E11.649 Type 2 diabetes mellitus with hypoglycemia without coma (principal); I12.9 Hypertensive chronic kidney disease with stage 1 through stage 4 chronic kidney disease, or unspecified chronic kidney disease; N18.9 Chronic kidney disease, unspecified